=== PATIENT | male | born 1980 | race Caucasian/White ===

== ENCOUNTER 2017-01-17 14:07 | Outpatient (CLI) | payer OTHER | END 2017-01-17 14:08 | disposition home or self-care (01) | LOC: DTY/OP 14:07 | PROVIDERS: ATTEND Specialist | DX: Z01.818 Encounter for other preprocedural examination (principal); E66.01 Morbid (severe) obesity due to excess calories | CPT/HCPCS: 97802 ==

== ENCOUNTER 2017-03-05 14:42 | Outpatient (CLI) | payer OTHER, SELFPAY ==
--- NOTE | 2017-03-14 19:29 | EKG ---
Test Reason : Blood Pressure : / mmHG Vent. Rate : 073 BPM Atrial Rate : 073 BPM P-R Int : 148 ms QRS Dur : 096 ms QT Int : 378 ms P-R-T Axes : 030 046 020 degrees QTc Int : 416 ms Normal sinus rhythm Nonspecific T wave abnormality Abnormal ECG No previous ECGs available Confirmed by KOJO KATHLEEN (2) on 03/14/2017 7:29:10 PM Referred By: MAGDA Confirmed By:KOJO KATHLEEN
== END 2017-03-05 14:43 | disposition home or self-care (01) ==
LOC: LABBT 14:42
PROVIDERS: ATTEND Specialist
DX: Z01.818 Encounter for other preprocedural examination (principal); E66.01 Morbid (severe) obesity due to excess calories
CPT/HCPCS: 93005; 93010

== ENCOUNTER 2017-03-05 16:30 | Inpatient (IN) | payer OTHER ==
[2017-03-05 15:02] VITALS: BMI 61.1
[2017-03-07] MEDS ORDERED: Scopolamine 1.5 mg/72 hour Patch ONE (06:06)
[2017-03-07] MEDS ORDERED: Heparin 5,000 UNITS/ML VIAL ONE (06:06)
[2017-03-07] MEDS ORDERED: Ketorolac Tromethamine 30 MG/ML VIAL ONE ×2 (06:07→12:28)
[2017-03-07] MEDS ORDERED: cefOXitin 2 GM, Syringe 1 ML in Sterile Water 10 ML SLOW IVP SCH (06:15)
[2017-03-07] MEDS ORDERED: Fentanyl 100 MCG/2 ML VIAL ONE ×2 (06:53→10:21)
[2017-03-07] MEDS ORDERED: Bupivacaine PF 0.5% 30 ML VIAL ONE (07:48)
[2017-03-07] MEDS ORDERED: Lidocaine 1% w/Epinephrine 1:200K 30 ML VIAL ONE (07:48)
[2017-03-07] MEDS ORDERED: Promethazine HCl 25 MG/ML VIAL ONE (09:46)
--- NOTE | 2017-03-07 09:57 | OP ---
DATE OF PROCEDURE: 03/07/2017 PREOPERATIVE DIAGNOSIS: Morbid obesity. POSTOPERATIVE DIAGNOSIS: Morbid obesity. OPERATION PERFORMED: Laparoscopic vertical sleeve gastrectomy. SURGEON: Irwin Lynn M.D. SCRUM MASTER: Delilah Mcleod ANESTHESIA: General endotracheal. INDICATIONS: The patient is a 36-year-old morbidly obese white male. He has undergone preoperative evaluation and education, who presents at this time for a vertical sleeve gastrectomy. OPERATIVE PROCEDURE IN DETAIL: Informed consent was obtained. The patient was taken to the operatin g room where general endotracheal anesthesia was obtained with the patient in supine position. Abdom en was clipped of hair, prepped with ChloraPrep, and draped in sterile fashion. Local anesthetic was infiltrated using 0.25% Marcaine with epinephrine and a 5 mm supraumbilical incision was created thr ough which a Veress needle was passed into the peritoneal cavity and pneumoperitoneum established usi ng carbon dioxide up to a pressure of 15 mmHg. A 5 mm trocar port was passed through this same incis ion. Laparoscopic camera was passed through this port. Under direct vision, 4 additional laparoscop ic ports were placed including bilateral subcostal 5 mm ports, a right paramedian 12 mm port, and a l eft paramedian 15 mm port. A 5 mm epigastric incision was created through which Nathansen retractor was passed into the abdominal cavity and used to retract the left lobe of the liver. The pylorus was identified. Beginning 5 cm proximal to the pylorus, the omental and vascular tissue was dissected away from the greater curvature of the stomach in an ascending fashion using the LigaSu re device. Hemostasis was maintained. The short gastric vessels were divided in a similar fashion. Posterior gastric adhesions were divided as well. The angle of His was mobilized and the left sabrina of the diaphragm was dissected as well. Once complete gastric mobilization was obtained, a 36 Niuean bougie was passed by Anesthesia through the stomach down to the level of the pylorus. This was used as a guide for the subsequent gastrectom y. The gastrectomy was performed using several firings of the Percy stapler, initially using a gre en load followed by a gold load and a series of blue loads to complete the resection. Great care was taken to avoid narrowing of the incisura or the gastroesophageal junction. Once the stomach was com pletely transected, the excised portion was removed through the 15 mm port site. The fascia was clos ed at that location using a [id number]-[id number] suture of 0 Vicryl using a GraNee needle. From above, an esophagogastroduodenoscopy was performed, passing the scope through the stomach to the level of the pylorus. There was no evidence of intraluminal bleeding or stricture formation. There was no air leak along the staple line as it was inspected under water. The intraluminal air was rem amparo and the scope was removed as well. The staple line was inspected for hemostasis. Hemostasis obtained using electrocautery and/or Hemocl ips as necessary. All irrigant from within the abdomen was aspirated. The Nathansen retractor and a ll ports were removed under direct vision. Pneumoperitoneum was carefully evacuated. Quarter percen t Marcaine with epinephrine was infiltrated in each port site and skin edges approximated with 4-0 Mo nocryl subcuticular suture. Dermabond was placed externally. There were no complications. The valerio ent tolerated the procedure well and was taken to recovery room in stable condition. FINDINGS: In spite of the patient's weight loss, he is still had a somewhat thickened appearance of his liver, although without monroe fatty infiltration. There was ample room to work on the liver. Th ere was extensive intra-abdominal fat, especially along the greater curvature of the stomach. Surger y was performed uneventfully with essentially no blood loss. Clips were placed upon the staple line to ensure excellent hemostasis. There were no complications. Patient tolerated the procedure well a nd was taken to recovery room in stable condition.
[2017-03-07] MEDS ORDERED: D5 1/2 NS w/20 mEq KCL 1,000 ML ONE (10:20)
[2017-03-07] MEDS ORDERED: Ondansetron HCl/PF 4 MG/2 ML Vial IVP PRN ×2 (10:21→11:06)
[2017-03-07] MEDS ORDERED: Promethazine HCl 25 MG/ML VIAL IM/IV PRN (10:21)
[2017-03-07] MEDS ORDERED: Dextrose 5% in Water 1,000 ML IV PRN (11:06)
[2017-03-07] MEDS ORDERED: Hydrocodone-Acetamin 15 ML UDCUP PO PRN (11:06)
[2017-03-07] MEDS ORDERED: Promethazine HCl 25 MG/ML VIAL IM PRN (11:06)
[2017-03-07] MEDS ORDERED: hydrALAZINE 20 MG/ML VIAL SLOW IVP PRN (11:06)
[2017-03-07] MEDS ORDERED: diphenhydrAMINE 50 MG/ML VIAL IVP PRN (11:06)
[2017-03-07] MEDS ORDERED: Dextrose 50% Abboject 50 ML SYRINGE SLOW IVP PRN (11:06)
[2017-03-07] MEDS ORDERED: Morphine 4 MG/ML VIAL SLOW IVP PRN ×2 (11:30)
[2017-03-07] MEDS ORDERED: Ondansetron HCl/PF 4 MG/2 ML Vial ONE (13:29)
[2017-03-07] MEDS ORDERED: Dexamethasone 20 MG/5 ML VIAL ONE (13:29)
[2017-03-07] MEDS ORDERED: Glycopyrrolate 0.2 MG/ML 5 ML SYRINGE ONE (13:29)
[2017-03-07] MEDS ORDERED: Propofol 200 MG/20 ML VIAL ONE (13:29)
[2017-03-07] MEDS: Ketorolac Tromethamine 30 MG/ML VIAL IVP SCH ×2 (15:02→18:42)
[2017-03-07] MEDS: D5 1/2 NS w/20 mEq KCL 1,000 ML IV SCH ×2 (16:00→20:17)
[2017-03-07 17:44] LABS: #Lymphocytes 0.7 thou/uL (1.20-3.40); #Monocytes 0.3 thou/uL (0.11-0.59); %Basophils 0.1 % (0.0-1.0); %Eosinophils 0.1 % (0.0-10.0); %Lymphocytes 7.1 % (21.0-51.0); %Monocytes 3.3 % (0.0-10.0); %Neutrophils 89.4 % (42.0-75.0); Hemoglobin 12.6 g/dL (14.0-18.0); Mean Corpuscular HGB CONC 32.3 g/dL (32.0-36.0); Mean Corpuscular Hemoglobin 30.8 pg (27.0-31.0); Mean Corpuscular Volume 95.4 fl (80.0-94.0); Mean Platelet Volume 8.4 fL (7.4-10.4); Platelet Count 289 thou/uL (130-400); RBC Distribution Width 12.3 % (11.5-14.5); Red Blood Cell (RBC) Count 4.09 mill/uL (4.70-6.10); White Blood Cell (WBC) Count 10.1 thou/uL (4.8-10.8)
[2017-03-07] MEDS ORDERED: Sodium Chloride 0.9% 1,000 ML IV SCH (18:00)
[2017-03-07 18:02] LABS: Anion Gap 12 mmol/L (10-20); BUN (Urea Nitrogen) 12 mg/dL (8.9-20.6); Calc. Creatinine Clearance 248 mL/min (70-130); Calcium 8.4 mg/dL (7.8-10.44); Carbon Dioxide 20 mmol/L (22-29); Chloride 107 mmol/L (98-107); Estimated GFR-MDRD 80; Glucose 195 mg/dL (70-105); Potassium 5.3 mmol/L (3.5-5.1); Sodium 134 mmol/L (136-145)
[2017-03-07] MEDS: Acetaminophen 1,000 MG in Premix Bag 1 BAG IVPB SCH (20:18)
[2017-03-07] MEDS ORDERED: Enoxaparin Sodium 40 MG/0.4 ML SYRINGE SC SCH (21:00)
[2017-03-07] MEDS ORDERED: Pantoprazole 40 MG VIAL IVP SCH (21:00)
[2017-03-07] MEDS ORDERED: Acetaminophen 1,000 MG in Premix Bag 1 BAG IVPB SCH (23:59)
[2017-03-08] MEDS: Acetaminophen 1,000 MG in Premix Bag 1 BAG IVPB SCH ×3 (00:56→16:04)
[2017-03-08] MEDS: Ketorolac Tromethamine 30 MG/ML VIAL IVP SCH ×3 (00:57→14:09)
[2017-03-08] MEDS: D5 1/2 NS w/20 mEq KCL 1,000 ML IV SCH ×3 (00:59→16:05)
[2017-03-08] MEDS ORDERED: GASTROGRAFIN 30 ML BOT ONE (06:23)
[2017-03-08 06:37] LABS: #Lymphocytes 1.7 thou/uL (1.20-3.40); #Monocytes 1.3 thou/uL (0.11-0.59); #Neutrophils 9.2 thou/uL (1.40-6.50); %Basophils 0.1 % (0.0-1.0); %Eosinophils 0.2 % (0.0-10.0); %Lymphocytes 13.5 % (21.0-51.0); %Monocytes 10.7 % (0.0-10.0); %Neutrophils 75.5 % (42.0-75.0); Hemoglobin 11.2 g/dL (14.0-18.0); Mean Corpuscular HGB CONC 32.5 g/dL (32.0-36.0); Mean Corpuscular Volume 95.4 fl (80.0-94.0); Mean Platelet Volume 8.6 fL (7.4-10.4); Platelet Count 268 thou/uL (130-400); RBC Distribution Width 12.4 % (11.5-14.5); White Blood Cell (WBC) Count 12.2 thou/uL (4.8-10.8)
[2017-03-08 06:53] LABS: Anion Gap 13 mmol/L (10-20); BUN (Urea Nitrogen) 15 mg/dL (8.9-20.6); Calc. Creatinine Clearance 186 mL/min (70-130); Calcium 8.3 mg/dL (7.8-10.44); Carbon Dioxide 18 mmol/L (22-29); Chloride 108 mmol/L (98-107); Estimated GFR-MDRD 57; Glucose 166 mg/dL (70-105); Potassium 4.9 mmol/L (3.5-5.1); Sodium 134 mmol/L (136-145)
[2017-03-08] MEDS ORDERED: FLU VACC QS2017-18 36 mo. & older 0.5 ML SYRINGE IM ONE (09:00)
--- NOTE | 2017-03-08 09:25 | RAD ---
UPPER GI SERIES SINGLE COLUMN: DATE: 03-08-17 HISTORY: 36-year-old male immediately status post bariatric surgery: vertical sleeve gastrectomy. Technique: Patient swallowed 15 ml of Gastrografin while upright. Brief, intermittent fluoroscopy was performed. FINDINGS: Contrast material enters the narrowed gastric channel from the esophagus at an appropriate rate. Ther e is no leakage. However, the contrast does not exit the stomach during the entire time of the fluoro scopic study, 2-3 minutes. After patient sat back down in the wheelchair, he had an episode of wretch ing, nonproductive vomiting, followed by face and lip pallor, and brief loss of consciousness. He was spontaneously recovering as he was placed on a stretcher, and vital signs were obtained. He eventual ly recovered and the patient was sent back to the floor in good, stable condition. IMPRESSION: 1. Status post vertical sleeve gastrectomy. 2. No evidence of leakage. 3. The Gastrografin does not drain from the narrowed gastric channel during this study. This is proba shorty due to post-operative edema. 4. Patient experienced vomiting, followed by a vasovagal reaction, immediately after the study. POS: ANGEL
--- NOTE | 2017-03-08 14:55 | DIS ---
DATE OF ADMISSION: 03/07/2017 DATE OF DISCHARGE: 03/08/2017 ADMISSION DIAGNOSIS: Morbid obesity. DISCHARGE DIAGNOSIS: Morbid obesity. OPERATION PERFORMED: Laparoscopic vertical sleeve gastrectomy. ADMISSION HISTORY: Patient is a 36-year-old morbidly obese white male with a BMI of 62. He presente d at this time for laparoscopic vertical sleeve gastrectomy. HOSPITAL COURSE: The patient underwent uneventful surgery on the day of presentation. Later that da y, he had some hypotension with systolic blood pressure of 80 and 90. He was also persistently tachy cardic with a pulse of 110-130. I recalled at that point that he had a pulse of 111 in my office on his preop visit and he is tachycardic at baseline. Laboratory studies were obtained the evening of s justin revealing a fairly stable hemoglobin level of 12.6. His chemistry panel was more or less unre markable, although he had mild hyperkalemia with a potassium of 5.3. He remained stable overnight. This morning, his swallow studies revealed that the contrast had not p assed through the stomach, but it did go down to the pylorus. He had 1 episode of emesis. He subseq uently had been tolerating clear liquids uneventfully. He has been slow to begin to ambulate, but mahoney s been ambulating some here today. He notes some discomfort, but no severe pain. He has had no furt her episodes of hypotension. His abdominal exam is benign. In summary, he is stable following his s leeve gastrectomy. He is instructed the importance of ambulation and hydration. He is given a disch arge prescription for hydrocodone. I will see him in the office in 10-14 days.
[2017-03-08 20:54] VITALS: BP 161/81; TEMP 97.9
== END 2017-03-08 15:45 | disposition home or self-care (01) | DRG 621 ==
LOC: SURG A 03-07 05:51 → EDSTATUS 03-07 16:30
PROVIDERS: ADMIT Specialist; ATTEND Specialist
PROC: 0DB64Z3 Excision of Stomach, Percutaneous Endoscopic Approach, Vertical (ICD-10-PCS; principal; 2017-03-07)
DX: E66.01 Morbid (severe) obesity due to excess calories (principal); E87.5 Hyperkalemia; G47.30 Sleep apnea, unspecified; Z68.44 Body mass index [BMI] 60.0-69.9, adult; R00.0 Tachycardia, unspecified
CPT/HCPCS: 36415; 74241; 80048; 85025; 88307; 88312; A4216; C9113; J0131; J0694; J1100; J1644; J1650; J1885; J2270; J2405; J2550; J2704; J3010; S0020